=== PATIENT | female | born 1950 | race African-American/Black ===

== ENCOUNTER 2018-11-04 02:00 | Emergency (ER) | payer MEDICARE ==
[~2018-11-04] VITALS: Ht 160 cm; Wt 65.0 kg
[2018-11-04 05:40] VITALS: BP 151/70
== END 2018-11-04 06:26 | disposition left against medical advice (07) ==
LOC: ER 02:00
DX: M79.605 Pain in left leg (principal); I10 Essential (primary) hypertension; F17.200 Nicotine dependence, unspecified, uncomplicated; I20.9 Angina pectoris, unspecified; Z86.73 Personal history of transient ischemic attack (TIA), and cerebral infarction without residual deficits; Z90.710 Acquired absence of both cervix and uterus; Z90.89 Acquired absence of other organs
CPT/HCPCS: 99281